=== PATIENT | female | born 1930 | race Asian ===

== ENCOUNTER → 2020-08-12 | Outpatient (CLI) | payer MEDICARE, OTHER ==
[2020-08-12 10:46] LABS: ALBUMIN 4.3 g/dL (3.4-5.0); BILIRUBIN,TOTAL 0.6 mg/dL (0.1-1.0); CALCIUM, TOTAL 9.5 mg/dL (8.8-10.5); CHOL/HDL RATIO 2.6 (3.9-5.7); CREATININE 2.26 mg/dL (0.60-1.30); POTASSIUM 5.3 mmol/L (3.5-5.1); TOTAL PROTEIN, SERUM 8.1 g/dL (6.4-8.2)
== END | disposition home or self-care (01) ==
LOC: LABPV 07:20
PROVIDERS: ATTEND Internal Medicine Nephrology
DX: E11.22 Type 2 diabetes mellitus with diabetic chronic kidney disease (principal); N18.30 Chronic kidney disease, stage 3 unspecified
CPT/HCPCS: 80053; 80061; 83970

== ENCOUNTER 2021-04-12 07:47 | Inpatient (IN) | payer MEDICARE, OTHER ==
[~2021-04-12] VITALS: Ht 162.6 cm; Wt 62.3 kg
[2021-04-12] MEDS ORDERED: DULA1.5P SQ (08:06)
[2021-04-12] MEDS ORDERED: ASPI-1450 PO (08:13)
[2021-04-12] MEDS ORDERED: OMEG-102 PO (08:13)
[2021-04-12] MEDS ORDERED: FURO20 PO (08:13)
[2021-04-12] MEDS ORDERED: POTA8TAB71 PO (08:13)
[2021-04-12] MEDS ORDERED: ALLO100T2 PO (08:13)
[2021-04-12] MEDS ORDERED: AMLO-258 PO (08:13)
[2021-04-12] MEDS ORDERED: LEVO75 PO (08:13)
[2021-04-12] MEDS ORDERED: METO50 PO (08:13)
[2021-04-12] MEDS ORDERED: ATOR10TA84 PO (08:13)
[2021-04-12] MEDS ORDERED: DOCU-270 PO (08:13)
[2021-04-12] MEDS ORDERED: PIPERACILLIN/TAZO 3.375 GM/D5W 50 ML IV ONE (09:15)
[2021-04-12] MEDS ORDERED: SODIUM CHLORIDE 0.9% 1,000 ML IV ONE (09:15)
[2021-04-12 09:22] LABS: BASOPHILS % (AUTO) 0.2 % (0.0-2.0); EOSINOPHILS % (AUTO) 0.2 % (1.0-6.0); HEMATOCRIT 39.8 % (36-46); HEMOGLOBIN 13.2 g/dL (12.0-16.0); LYMPHOCYTES # (AUTO) 0.8 K/uL (1.0-4.8); LYMPHOCYTES % (AUTO) 6.2 % (22.0-44.0); MEAN CORPUSCULAR HEMOGLOBIN 30.5 pg (26.0-34.0); MEAN CORPUSCULAR HGB CONC 33.2 G/dL (31.0-37.0); MEAN CORPUSCULAR VOLUME 92 fL (80-100); MONOCYTES # (AUTO) 0.9 K/uL (0.1-1.0); NEUTROPHILS # (AUTO) 11.6 K/uL (1.8-7.7); PLATELET COUNT (AUTO) 222 K/uL (150-450); RED BLOOD CELL COUNT(AUTO) 4.33 MIL/uL (4.00-5.20); RED CELL DISTRIBUTION WIDTH 14.4 % (11.5-14.5)
[2021-04-12 09:25] LABS: NEUTROPHILS % (AUTO) 86.4 % (40.0-70.0)
[2021-04-12 09:39] LABS: CALCIUM, TOTAL 9.3 mg/dL (8.8-10.5); CREATININE 1.78 mg/dL (0.60-1.30); POTASSIUM 4.2 mmol/L (3.5-5.1)
[2021-04-12 09:45] LABS: ALBUMIN 3.4 g/dL (3.4-5.0); BILIRUBIN,TOTAL 0.9 mg/dL (0.1-1.0); TOTAL PROTEIN, SERUM 8.1 g/dL (6.4-8.2)
[2021-04-12 09:55] LABS: COVID AG,FIA SOURCE NASOPHARYNGEAL
[2021-04-12] MEDS ORDERED: MORPHINE SULFATE 2 MG/ML SYRINGE IVP PRN (10:15)
[2021-04-12] MEDS ORDERED: MAGNESIUM HYDROXIDE SUSPENSION 30 ML UDCUP PO PRN (10:15)
[2021-04-12] MEDS ORDERED: DEXTROSE 50%-WATER 25 GM/50 ML SYRINGE IVP PRN (10:15)
[2021-04-12] MEDS ORDERED: ONDANSETRON HCL 4 MG/2 ML VIAL IVP PRN (10:15)
[2021-04-12 11:00] LABS: THYROID STIMULATING HORMONE 1.7 uIU/mL (0.36-3.74)
[2021-04-12] MEDS ORDERED: ONDANSETRON HCL 4 MG/2 ML VIAL IVP ONE (12:00)
[2021-04-12] MEDS ORDERED: LIDOCAINE/PF 2% 5 ML VIAL IM ONE (12:00)
[2021-04-12] MEDS ORDERED: FentaNYL CITRATE PF 100 MCG/2 ML VIAL IVP ONE (12:00)
[2021-04-12] MEDS ORDERED: PROPOFOL 1% 20 ML VIAL IVP ONE (12:00)
[2021-04-12] MEDS ORDERED: DEXAMETHASONE SOD PHOS 4 MG/ML VIAL IVP ONE (12:00)
[2021-04-12] MEDS ORDERED: CHLORHEXIDINE GLUCONATE 4% 118 ML TOPICAL LIQUID TP ONE (12:30)
[2021-04-12] MEDS ORDERED: BUPIVACAINE/EPI/PF 0.5% 30 ML VIAL ONE (12:31)
[2021-04-12] MEDS ORDERED: HYDROGEN PEROXIDE 473 ML SOLUTION ONE (12:58)
[2021-04-12] MEDS ORDERED: HYDROmorphone 2 MG/ML VIAL IVP PRN (13:00)
[2021-04-12] MEDS ORDERED: MEPERIDINE-PF 25 MG/ML VIAL IVP PRN (13:00)
[2021-04-12] MEDS ORDERED: FentaNYL CITRATE PF 100 MCG/2 ML VIAL IVP PRN (13:00)
[2021-04-12 17:12] VITALS: BP 132/69
[2021-04-12] MEDS: INSULIN LISPRO 100 UNITS/ML SQ PRN ×2 (17:58→21:16)
[2021-04-12] MEDS: PIPERACILLIN SODIUM/TAZOBACTAM 2.25 GM in DEXTROSE 5%-WATER 50 ML IV SCH (18:23)
[2021-04-12] MEDS ORDERED: SODIUM CHLORIDE 0.9% 250 ML IV ONE (18:26)
[2021-04-12 19:47] VITALS: BP 104/55
[2021-04-12] MEDS: DOCUSATE SODIUM 100 MG CAPSULE PO SCH (21:05)
[2021-04-12 23:11] LABS: GLUCOMETER DEV NAME(LOC) 6N.2; GLUCOSE,POINT OF CARE 261 MG/DL (70-110)
[2021-04-13] MEDS: PIPERACILLIN SODIUM/TAZOBACTAM 2.25 GM in DEXTROSE 5%-WATER 50 ML IV SCH ×3 (02:00→18:34)
[2021-04-13 04:46] VITALS: BP 120/72
[2021-04-13] MEDS: INSULIN LISPRO 100 UNITS/ML SQ PRN ×3 (06:06→21:02)
[2021-04-13 06:16] LABS: GLUCOMETER DEV NAME(LOC) SDS.; GLUCOSE,POINT OF CARE 125 MG/DL (70-110)
[2021-04-13 07:17] LABS: GLUCOMETER DEV NAME(LOC) 6N.2; GLUCOSE,POINT OF CARE 165 MG/DL (70-110)
[2021-04-13] MEDS: OXYGEN THERAPY IH SCH ×3 (08:00→20:00)
[2021-04-13 08:15] VITALS: BP 121/70
[2021-04-13] MEDS: ACETAMINOPHEN 325 MG TABLET PO PRN ×2 (08:28→20:58)
[2021-04-13] MEDS: FAMOTIDINE 20 MG TABLET PO SCH (08:28)
[2021-04-13] MEDS: DOCUSATE SODIUM 100 MG CAPSULE PO SCH ×2 (08:28→20:58)
[2021-04-13 11:08] LABS: BASOPHILS % (AUTO) 0.2 % (0.0-2.0); EOSINOPHILS % (AUTO) 0 % (1.0-6.0); HEMATOCRIT 36.8 % (36-46); HEMOGLOBIN 12.3 g/dL (12.0-16.0); LYMPHOCYTES # (AUTO) 0.6 K/uL (1.0-4.8); LYMPHOCYTES % (AUTO) 4.3 % (22.0-44.0); MEAN CORPUSCULAR HGB CONC 33.5 G/dL (31.0-37.0); MEAN CORPUSCULAR VOLUME 90 fL (80-100); MONOCYTES # (AUTO) 0.5 K/uL (0.1-1.0); MONOCYTES % (AUTO) 3.9 % (2.0-9.0); NEUTROPHILS # (AUTO) 12.2 K/uL (1.8-7.7); PLATELET COUNT (AUTO) 220 K/uL (150-450); RED BLOOD CELL COUNT(AUTO) 4.11 MIL/uL (4.00-5.20)
[2021-04-13 11:13] LABS: NEUTROPHILS % (AUTO) 91.6 % (40.0-70.0)
[2021-04-13 11:57] LABS: CALCIUM, TOTAL 8.9 mg/dL (8.8-10.5); CREATININE 1.64 mg/dL (0.60-1.30); POTASSIUM 4.1 mmol/L (3.5-5.1)
[2021-04-13 16:39] VITALS: BP 120/66
[2021-04-13 19:30] VITALS: BP 123/64
[2021-04-13 20:16] LABS: GLUCOMETER DEV NAME(LOC) 6N.1; GLUCOSE,POINT OF CARE 237 MG/DL (70-110)
[2021-04-13 20:21] LABS: GLUCOMETER DEV NAME(LOC) 6N.1; GLUCOSE,POINT OF CARE 159 MG/DL (70-110)
[2021-04-14 00:46] LABS: GLUCOMETER DEV NAME(LOC) 6N.2; GLUCOSE,POINT OF CARE 188 MG/DL (70-110)
[2021-04-14] MEDS: PIPERACILLIN SODIUM/TAZOBACTAM 2.25 GM in DEXTROSE 5%-WATER 50 ML IV SCH ×2 (02:19→09:31)
[2021-04-14 05:00] VITALS: BP 123/62
[2021-04-14] MEDS ORDERED: LEVOTHYROXINE SODIUM 75 MCG TABLET PO SCH (06:30)
[2021-04-14 07:16] LABS: GLUCOMETER DEV NAME(LOC) 6N.1; GLUCOSE,POINT OF CARE 102 MG/DL (70-110)
[2021-04-14 07:54] VITALS: BP 129/73
[2021-04-14] MEDS: OXYGEN THERAPY IH SCH (08:00)
[2021-04-14] MEDS: DOCUSATE SODIUM 100 MG CAPSULE PO SCH (09:26)
[2021-04-14] MEDS: FAMOTIDINE 20 MG TABLET PO SCH (09:26)
[2021-04-14] MEDS ORDERED: CLIN300C3 PO (10:39)
[2021-04-14] MEDS: INSULIN LISPRO 100 UNITS/ML SQ PRN (11:33)
[2021-04-14] MEDS ORDERED: AMOX1TAB15 PO (11:59)
[2021-04-14 12:36] LABS: GLUCOMETER DEV NAME(LOC) 6N.2; GLUCOSE,POINT OF CARE 150 MG/DL (70-110)
[2021-04-17 15:36] LABS: GLUCOMETER DEV NAME(LOC) 6N.1; GLUCOSE,POINT OF CARE 243 MG/DL (70-110)
== END 2021-04-14 13:00 | disposition home or self-care (01) | DRG 395 ==
LOC: EMS 07:50 → 6N 16:56
PROVIDERS: ADMIT Internal Medicine; ATTEND Internal Medicine
PROC: 0J9B0ZZ Drainage of Perineum Subcutaneous Tissue and Fascia, Open Approach (ICD-10-PCS; principal; 2021-04-12 12:30)
DX: K61.39 Other ischiorectal abscess (principal); E11.22 Type 2 diabetes mellitus with diabetic chronic kidney disease; I12.9 Hypertensive chronic kidney disease with stage 1 through stage 4 chronic kidney disease, or unspecified chronic kidney disease; N18.30 Chronic kidney disease, stage 3 unspecified; E78.5 Hyperlipidemia, unspecified; E03.9 Hypothyroidism, unspecified; E78.00 Pure hypercholesterolemia, unspecified; Z20.822 Contact with and (suspected) exposure to COVID-19; E11.65 Type 2 diabetes mellitus with hyperglycemia; Z83.3 Family history of diabetes mellitus; Z79.899 Other long term (current) drug therapy; Z91.041 Radiographic dye allergy status; Z79.82 Long term (current) use of aspirin
CPT/HCPCS: 74176; 80048; 80053; 82962; 84443; 85025; 87070; 93005; 99285; J1100; J2405; J2543; J2704; J3010; J3490; J7030; J7050; J7060

== ENCOUNTER 2021-04-17 08:59 | Emergency (ER) | payer MEDICARE, OTHER ==
[~2021-04-17] VITALS: Ht 162.6 cm; Wt 62.0 kg
[~2021-04-17 08:59] MED LIST: ALLO100T2 PO; AMOX1TAB15 PO; ASPI-1450 PO; ATOR10TA84 PO; DOCU-270 PO; DULA1.5P SQ; LEVO75 PO; OMEG-102 PO
[2021-04-17 09:12] VITALS: BP 131/71
== END 2021-04-17 12:35 | disposition home or self-care (01) ==
LOC: EMS 09:08
DX: Z48.00 Encounter for change or removal of nonsurgical wound dressing (principal); I10 Essential (primary) hypertension; E11.9 Type 2 diabetes mellitus without complications; E03.9 Hypothyroidism, unspecified; Z91.041 Radiographic dye allergy status; Z79.899 Other long term (current) drug therapy
CPT/HCPCS: 99281; Z7502